=== PATIENT | male | born 1980 | race Caucasian/White ===

== ENCOUNTER 2019-10-19 05:43 | Day surgery (SDC) | payer BC ==
--- NOTE | 2019-10-17 03:40 | HP ---
HISTORY AND PHYSICAL: DATE OF PLANNED ADMISSION AND SURGERY: 10/19/19 HISTORY OF PRESENT ILLNESS: Mr. Ryan is a 39-year-old white male who is admitted with history of bilateral vasectomy for bilateral vasovasostomies ( vasectomy reversal). Mr. Ryan had bilateral vasectomy in July 2009 while living in [place]. At that time, he had 2 children from his first marriage. Since that time, the patient is and he is now remarried. His is 28-year-old. The couple would like to have a child together and the patient presented for a vasectomy reversal. The patient's is healthy. She has regular periods. She has had no gynecological problems or surgeries. She has not been in a previous relationship where she did not use contraception and she has not been before. She has no medical problems and her recent [facility] [employer]PERATOR evaluation was within normal. On his initial visit to my office, the patient was noted to have a small degree of asymptomatic microscopic hematuria. Because of past history of smoking, he was worked up and had bilateral renal ultrasound which was normal and an office cystoscopy which was negative. His past history is otherwise completely negative. PAST MEDICAL HISTORY AND SYSTEM REVIEW: He is in excellent health. MEDICATIONS: He is on no chronic medications. ALLERGIES: He denies any allergies to medications. He denies any cardiac or pulmonary diseases or symptoms. FAMILY HISTORY: Negative for prostate carcinoma. SOCIAL HISTORY: He was a smoker of half a pack per day for about 15 years and he stopped 3 years ago. He denies the intake of recreational drugs. He has a negative mental health history. PHYSICAL EXAMINATION GENERAL: He is a moderately overweight, but healthy-looking white male. VITAL SIGNS: Blood pressure 120/80, pulse of 90. LUNGS: Clear. HEART: Regular and rhythmic. No murmurs. ABDOMEN: Soft. No masses. No tenderness and no CVA tenderness. : External genitalia: he is circumcised. No penile lesions. Both testes feel normal in size and consistency. There is a prominence of the epididymis bilaterally consistent with the postvasectomy changes. The vas deferens is palpable bilaterally. The site of the vasectomy can be felt and no granuloma noted at that level on either side. He has no hydrocele, varicocele, or spermatocele noted and no inguinal hernias. IMPRESSION: 1. Small degree of microscopic hematuria, negative work-up. 2. History of elective sterilization and the patient wants to proceed with vasectomy reversal. PLAN: I had a long discussion with the patient and his regarding the vasectomy reversal, the procedure and the chances of success. Considering the vasectomy was performed more than 10 years ago, the chances of success are diminished, but it is still an acceptable option for him. I also discussed the other options including sperm extraction from the epididymis or the testicle and performing ICSI. The couple, however, wants to proceed with the bilateral vasectomy. I discussed the potential complications of infection and scrotal hematoma. All their questions were answered. [id number]/[facility] #: [id number] SEPIDEH
[~2019-10-19 05:43] MED LIST: Buffered Lidocaine 1% SYRIN* 1 ML/SYRINGE INTRADERM ONE
[2019-10-19] MEDS ORDERED: Lactated Ringers 1000 ML Bag* 1,000 ML IV SCH (06:00)
[2019-10-19] MEDS ORDERED: Buffered Lidocaine 1% SYRIN* 1 ML/SYRINGE INTRADERM ONE (06:35)
[2019-10-19] MEDS ORDERED: ceFAZolin 2 GM in NS PREMIX(*) 2 GM/100 ML BAG IVPB ONE (06:35)
[2019-10-19] MEDS ORDERED: Lidocaine 1% INJ* 10 MG/ML 30 ML SDV ONE (07:29)
[2019-10-19] MEDS ORDERED: Gentamicin ADULT (*) 40 MG/ML VIAL (2 ML VIAL = 80 MG) ONE (07:29)
[2019-10-19] MEDS ORDERED: Propofol* 10 MG/ML 20 ML BTL ONE (07:37)
[2019-10-19] MEDS ORDERED: HYDROmorphone INJ1* 1 MG/ML SYRINGE ONE ×2 (07:37→10:09)
[2019-10-19] MEDS ORDERED: PROCHLORPERAZINE INJ 5 MG/ML 2 ML VIAL IV PRN (07:55)
[2019-10-19] MEDS ORDERED: Naloxone* 0.4 MG/ML 1 ML VIAL IV PRN (07:55)
[2019-10-19] MEDS ORDERED: Ondansetron INJ* 2 MG/ML VIAL IV PRN (07:55)
[2019-10-19] MEDS ORDERED: Dexamethasone IV* 4 MG/ML 1 ML (4 MG) ONE (09:43)
[2019-10-19] MEDS: HYDROmorphone INJ1* 1 MG/ML SYRINGE IV PRN ×3 (10:11→10:25)
[2019-10-19 11:46] VITALS: BP 123/87
--- NOTE | 2019-10-20 01:12 | OP ---
DATE OF OPERATION: 10/19/19 [facility] DATE OF : 84 SURGEON: Corona Coe MD GLASS WASHER: Dr. Cabral. ANESTHESIOLOGIST: Dr. Glover. ANESTHESIA: General. PRE-OP DIAGNOSES: 1. Status post bilateral vasectomy. 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 POST-OP DIAGNOSES: 1. Status post bilateral vasectomy. 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 OPERATIVE PROCEDURE: Bilateral vasovasostomies. INDICATION FOR PROCEDURE: Mr. Ryan is a 39-year-old white male who underwent bilateral vasectomy in 2008. He is now remarried and the couple would like to start a family together. His is healthy. The patient has no symptoms. After discussing the options of management including assisted fertility with sperm extraction and ICSI, and after discussing the decreased chances of successful vasectomy reversal 11 years after the vasectomy was performed, the patient wanted still to proceed with the vasectomy reversal. OPERATIVE FINDINGS: Exam under anesthesia and upon right scrotal exploration, showed a rather large vas granuloma noted at the site of the vasectomy. The granuloma was located just at the level of the convoluted portion of the vas. There were no hemoclips used. The scarring of the vas extended for a distance of about 2 cm. No other abnormalities were noted. Upon left scrotal exploration, there was a smaller granuloma, but it was located in the area of the proximal end of the vas within the scrotum. The granuloma extended for about 2 cm. The vasectomy seemed to have been done mostly by using a needle cautery inside the lumen of the vas explaining the extent of scarring that was noted. No other abnormalities were noted. DESCRIPTION OF PROCEDURE: After successful general anesthesia, the patient was placed in the supine position, and the scrotal area was prepped and draped. The site of the right vasectomy was palpated and was brought up and stabilized underneath the anterior portion of the scrotal skin. A small skin incision was carried over the granuloma and was deepened through the dartos muscle. The site of the vasectomy was then dissected and the vas was grabbed with the ring forceps. Additional dissection was then carried freeing the whole granuloma and freeing the 2 ends of the vas proximally and distally. The convoluted portion of the vas was also partially dissected. Fixation sutures of 4-0 chromic were taken in the adventitia of the 2 ends of the vas. The granuloma was then sharply excised. The lumen of the vas was identified both in the epididymal and in the prostatic ends. The lumens of the vas were then dilated with the lacrimal duct probes. A full thickness anastomosis was then performed using 7- 0 Prolene with loupe magnification. This achieved a good anastomosis and approximation of the vas ends under no tension. There was good hemostasis. The adventitia adjacent to the both ends of the vas were then approximated with 4-0 chromic to avoid any tension on the anastomosis. After making sure there was good hemostasis, the scrotal incision was closed using interrupted sutures of 4-0 chromic. Attention was then directed to the left vas. There was more difficulty identifying the granuloma, which was not as prominent and which seemed to be located more proximally in the upper scrotum. The vas was identified proximal on both ends of the granuloma. The epididymal end was then divided and there was epididymal fluid noted from the lumen. A 4-0 chromic suture was then taken in the adventitia of the vas adjacent to its divided end. The granuloma was then dissected superiorly in the scrotum. By that time, there seemed to be some tension to keep the prostatic end of the vas accessible. Traction sutures of 4-0 chromic were taken in the adventitia. The vas was also additionally dissected to free it and release the tension. The granuloma was then divided sequentially until the lumen of the vas was identified. The lumen of the vas was then dilated with the lacrimal duct probes. The anastomosis was then carried between the 2 ends of the vas using full thickness sutures of 7-0 Prolene using loupe magnification. That seemed to have achieved a good anastomosis and there was no tension after the traction sutures in the adjacent adventitia where tied together. After making sure there was good hemostasis, the vas was dropped in the scrotal cavity. The skin was closed using 4-0 chromic. The patient tolerated the procedure well and left the operating room in good condition. The blood loss was negligible, all the counts were correct. [id number]/[facility] #: [id number] [facility]ENT[facility]ra
== END 2019-10-19 11:40 | disposition home or self-care (01) ==
LOC: OR 05:43
PROVIDERS: ATTEND Urology
DX: Z31.0 Encounter for reversal of previous sterilization (principal); Z87.891 Personal history of nicotine dependence
CPT/HCPCS: J0690; J1100; J1170; J1580; J2704